=== PATIENT | female | born 1970 | race Caucasian/White ===

== ENCOUNTER 2017-07-30 11:38 | Emergency (ER) | payer SELFPAY ==
[2017-07-30] MEDS ORDERED: Ondansetron ODT 4 MG TAB ONE (12:30)
[2017-07-30] MEDS ORDERED: Acetaminophen/Codeine 30-300mg Tablet ONE (12:38)
[2017-07-30 12:49] LABS: ALT (SGPT) 43 U/L (8-55); AST (SGOT) 28 U/L (5-34); Albumin 3.7 g/dL (3.5-5.0); Alkaline Phosphatase 189 U/L (40-150); Anion Gap 15 mmol/L (10-20); BUN (Urea Nitrogen) 14 mg/dL (7.0-18.7); Bilirubin, Total 0.5 mg/dL (0.2-1.2); Calc. Creatinine Clearance 0 mL/min (70-130); Calcium 9.4 mg/dL (7.8-10.44); Carbon Dioxide 22 mmol/L (22-29); Chloride 108 mmol/L (98-107); Estimated GFR-MDRD 78; Globulin 3.5 g/dL (2.4-3.5); Glucose 151 mg/dL (70-105); Lipase 47 U/L (8-78); Potassium 3.9 mmol/L (3.5-5.1); Protein, Total 7.2 g/dL (6.0-8.3); Sodium 141 mmol/L (136-145)
[2017-07-30 13:09] LABS: Bilirubin Negative (Negative); Blood, Urine Trace (Negative); Clarity Cloudy (Clear); Glucose, Urine (Dipstick) Negative (Negative); Leukocyte Small (Negative); Nitrite Negative (Negative); Protein, Urine (Dipstick) Negative (Neg-Trace); Urobilinogen 0.2 mg/dL (0.2-1.0)
[2017-07-30 13:15] LABS: Bacteria/HPF 1+ HPF (None Seen); Crystals/HPF None Seen HPF (Negative); Hyaline Casts/LPF NONE SEEN LPF (0-3 Hyaline); Other Casts/LPF None Seen LPF (0-3 Hyaline); Oval Fat Bodies/HPF None Seen HPF (None Seen); RBC/HPF 0-3 HPF (0-3); Renal Epithelial None Seen HPF (0-3); Sperm/HPF None Seen HPF (None Seen); Transitional Epithelial NONE SEEN HPF (0-3); Trichomonas/HPF None Seen HPF (None Seen); WBC/HPF 0-3 HPF (0-3); Yeast-All Forms None Seen HPF (None Seen)
[2017-07-30 13:17] LABS: #Eosinphils 0.1 thou/uL (0.0-0.7); #Monocytes 0.2 thou/uL (0.11-0.59); #Neutrophils 1.8 thou/uL (1.40-6.50); %Basophils 1.4 % (0.0-1.0); %Eosinophils 2.9 % (0.0-10.0); %Lymphocytes 19.2 % (21.0-51.0); %Monocytes 8.8 % (0.0-10.0); %Neutrophils 67.6 % (42.0-75.0); Hemoglobin 11.2 g/dL (12.0-16.0); Mean Corpuscular Volume 90.9 fl (81.0-99.0); Mean Platelet Volume 7.1 fL (7.4-10.4); Platelet Count 89 thou/uL (130-400); Red Blood Cell (RBC) Count 3.75 mill/uL (4.20-5.40); White Blood Cell (WBC) Count 2.7 thou/uL (4.8-10.8)
[2017-07-30 13:51] LABS: MDiff Complete? YES
--- NOTE | 2017-07-30 17:04 | CT ---
CT ABDOMEN AND PELVIS WITHOUT CONTRAST 07/30/17 IV access could not be secured, so the study was done without contrast. The patient has had prior abd ominal surgeries but no prior scans were available for comparison. There is a history of an inguinal hernia. The lung bases are clear. The liver is mildly generous in size and the spleen is mildly enlarged duc uring nearly 17 cm in length on the axial images. The pancreas itself was unremarkable as were the ad renal glands. The kidneys show no mass, hydronephrosis or calculi. The aorta is normal in caliber. Th ere has been a prior cholecystectomy. There is some generalized streaking in the abdominal mesenteric fat anteriorly beginning around the u mbilical region and extending further below that. There is considerable streaking in the anterior abd ominal wall midline and to the right. My understanding is that this is coincident with scar from prio r abdominal surgery. There is herniation of bowel into the patient's panniculus in the right lower qu adrant. None of the bowel is dilated. There is certainly no sign of abdominal obstruction. No free ai r or free fluid was seen. There are no inflammatory changes around the bowel itself to suggest entity such as diverticulitis. I could not define the appendix. CT of the pelvis was remarkable for the herniation on the right. No free fluid, inflammatory change, or other acute changes were encountered in this region. IMPRESSION: 1. Splenomegaly. 2. Streaking in the fat of the anterior abdominal mesentery at about the umbilical region and be low. This is really a bit below the area of the pancreas and I also understand the patient's amylase is low. This may just be change from prior surgery in this location, rather than inflammatory change. None of the bowel in the region looks thickened to suggest an inflammatory condition there. Further followup may be needed. 3. Large inguinal hernia into the panniculus without obstruction of bowel. POS: HOME
== END 2017-07-30 13:24 | disposition home or self-care (01) ==
LOC: BURERS 11:38
DX: L03.311 Cellulitis of abdominal wall (principal); I10 Essential (primary) hypertension; Z79.899 Other long term (current) drug therapy
CPT/HCPCS: 74176; 80053; 81003; 81015; 83605; 83690; 85025; 99284; Q0162